=== PATIENT | male | born 1985 | race African-American/Black ===

== ENCOUNTER 2018-10-26 21:21 | Emergency (ER) | payer MEDICAID ==
[~2018-10-26] VITALS: Ht 165.1 cm; Wt 65.8 kg
[2018-10-26] MEDS ORDERED: NKM (21:29)
[2018-10-26 21:35] VITALS: BP 138/85
--- NOTE | 2018-10-26 21:36 | Emergency Room Report ---
History of Present Illness General Chief Complaint: General Complaint Source: Patient Present Illness HPI This is a 32-year-old male with no past medical history. He presents with chief complaint of chills, shortness of breath and palpitation. Onset was acute. He was on the couch eating ice cream and had smoked some marijuana. Also any felt chills and was shaky uncontrollably. Also felt short of breath and felt his heart beating fast. He was concerned about this. Never had this problem before. Denies any fever. Was not sweating. No chest pain. No nausea no vomiting. Better now. Onset was acute and occurred just prior to arrival. Allergies: Coded Allergies: No Known Allergies (Unverified , 10/26/18) Patient History Past Medical History: none, see triage record, old chart reviewed Past Surgical History: none Pertinent Family History: none Social History: Reports: smoking Immunizations: other Reviewed Nursing Documentation: PMH: Agreed; PSxH: Agreed Nursing Documentation-PMH Past Medical History: No Stated History Review of Systems Eye: Denies: eye pain, blurred vision ENT: Denies: ear pain, nose congestion, throat swelling Respiratory: Reports: shortness of breath; Denies: cough Cardiovascular: Reports: palpitations; Denies: chest pain Gastrointestinal: Denies: abdominal pain, diarrhea, nausea, vomiting Musculoskeletal: Denies: back pain, joint pain Skin: Denies: rash Neurological: Denies: headache, numbness Endocrine: Denies: increased thirst, increased urine Hematologic/Lymphatic: Denies: easy bruising All Other Systems: negative except mentioned in HPI Physical Exam Vital Signs Date Time Temp Pulse Resp B/P (MAP) Pulse Ox O2 Delivery O2 Flow Rate FiO2 10/26/18 21:26 98.1 87 16 138/85 97 Room Air vitals normal Sp02 EP Interpretation: reviewed, normal General Appearance: well appearing, no apparent distress, alert Head: normocephalic, atraumatic Eyes: bilateral eye PERRL, bilateral eye EOMI ENT: hearing grossly normal, normal pharynx Neck: full range of motion, supple, no meningismus Respiratory: chest non-tender, lungs clear, normal breath sounds Cardiovascular #1: regular rate, rhythm, no murmur Gastrointestinal: normal bowel sounds, non tender, no mass, no organomegaly, no bruit, non-distended Musculoskeletal: back normal, gait/station normal, normal range of motion Psychiatric: mood/affect normal Skin: warm/dry Medical Decision Making Diagnostic Impression: Primary Impression: Chest pain of uncertain etiology ER Course Patient presents with chest pain while eating ice cream. He may have had reflux or esophageal spasm. No evidence of ACS, PE, dissection to name a few. He felt better now. We'll discharge home. EKG Diagnostic Results Rate: normal Rhythm: NSR ST Segments: no acute changes Rhythm Strip Diag. Results EP Interpretation: yes Rate: 85 Rhythm: NSR, no PVC's, no ectopy Chest X-Ray Diagnostic Results Chest X-Ray Diagnostic Results : Chest X-Ray Ordered: Yes # of Views/Limited/Complete: 1 View Indication: Chest Pain EP Interpretation: Yes Interpretation: no consolidation, no effusion, no pneumothorax, no acute cardiopulmonary disease Impression: No acute disease Electronically Signed by: Chava Wilhelm MD Last Vital Signs Date Time Temp Pulse Resp B/P (MAP) Pulse Ox O2 Delivery O2 Flow Rate FiO2 10/26/18 21:26 98.1 87 16 138/85 97 Room Air Status: improved Disposition: HOME, SELF-CARE Condition: Stable Additional Instructions: Follow-up with your doctor in 7 days. Return if symptom worsen. Chava Wilhelm MD Oct 26, 2018 21:36
--- NOTE | 2018-10-26 21:39 | NUR ---
ED Nurse Note: Patient walk in c/o chills, body aches, heart palpitations starting 30 minutes ago. as of right now, pt presents with asymptomatic symptoms. HR is within normal limits. (71HR) and the rest of the vital signs are within normal limits. 12 lead EKG tracing stated "normal sinus rhythm" EGK tracing confirmed with MD Wilhelm. C XRAY is at bed side, will follow up with ERMD.
[2018-10-26 21:45] VITALS: BP 134/83
[2018-10-26 21:46] VITALS: BP 134/83
--- NOTE | 2018-10-26 21:47 | NUR ---
ED Nurse Note: PT is DC per ERMD order. pt is alert and oriented times 4 with neuro checks within normal limits. pt is able to ambulate with no complications. pt vital signs, status, and condition is reported to ERMD prior to DC. pt is instructed to follow up with primary MD as soon as possible. pt has left with all belongings and ID band removed. pt has left with all DC paper paperwork and prescriptions and shows full understanding of paperwork and DC instructions. pt is instructed to return and report to ER if any variance in condition. pt is stable for Dc.
--- NOTE | 2018-10-27 12:25 | Diagnostic Imaging Report ---
Indication: Dyspnea Comparison: None A single view chest radiograph was obtained. Findings: Cardiomediastinal appearance is within normal limits for age. The lungs are clear. Pulmonary vascularity is appropriate. The diaphragmatic contour is smooth and costophrenic angles are sharp. No pleural effusions are identified. The bones are unremarkable. Impression: No acute findings
--- NOTE | 2018-10-27 17:59 | Cardiology Report ---
APPROVED REPORT EKG Measurement Heart [id number] Normal sinus rhythm Rightward axis T wave abnormality, consider inferior ischemia Abnormal ECG
== END 2018-10-26 21:50 | disposition home or self-care (01) ==
LOC: EMR 21:33
DX: R07.9 Chest pain, unspecified (principal); R06.02 Shortness of breath; R00.2 Palpitations; R68.83 Chills (without fever); F12.90 Cannabis use, unspecified, uncomplicated
CPT/HCPCS: 71045; 93005; 99283